=== PATIENT | female | born 1980 | race Caucasian/White ===

== ENCOUNTER → 2016-05-24 | Outpatient (CLI) | payer OTHER, BC ==
[~2016-05-24] VITALS: Ht 162.6 cm; Wt 74.0 kg
[~2016-05-24] MED LIST: AMITRIPTYLINE H25 MG PO; ATIVAN1 MG PO; CIPRO500 MG PO; ELAVIL25 MG PO; GABAPENTIN100 MG PO; IBUPROFEN800 MG PO; IMITREX25 MG PO; KEFLEX500 MG PO; MOTRIN600 MG PO; MOTRIN800 MG PO; NAPROSYN500 MG PO; OXYCODONE HCL5 MG PO; PERCOCET 5/31 TABLET PO; PYRIDIUM100 MG PO; PYRIDIUM200 MG PO; REGLAN10 MG PO; SUMATRIPTAN SUC25 MG PO; TOPAMAX25 MG PO; TOPIRAMATE50 MG PO; VICODIN 5-3001 EACH PO
[2016-05-24 07:24] VITALS: BP 124/75
== END | disposition home or self-care (01) ==
LOC: IVINF 07:00
PROVIDERS: Internal Medicine Endocrinology, Diabetes & Metabolism
DX: R53.83 Other fatigue (principal); Z88.2 Allergy status to sulfonamides; Z88.4 Allergy status to anesthetic agent; Z88.8 Allergy status to other drugs, medicaments and biological substances
CPT/HCPCS: 80400; 82024 90; 82533 91; 96374; J0834

== ENCOUNTER 2016-11-29 15:28 | Emergency (ER) | payer OTHER, BC ==
[~2016-11-29] VITALS: Ht 162.6 cm; Wt 75.1 kg
[2016-11-29] MEDS ORDERED: FLEXERIL10 MG PO (16:51)
[2016-11-29] MEDS ORDERED: ULTRAM50 MG PO (16:51)
[2016-11-29 17:06] VITALS: BP 109/77
== END 2016-11-29 17:16 | disposition home or self-care (01) ==
LOC: EME 15:28
DX: S20.219A Contusion of unspecified front wall of thorax, initial encounter (principal); M62.838 Other muscle spasm; S90.812A Abrasion, left foot, initial encounter; V49.40XA Driver injured in collision with unspecified motor vehicles in traffic accident, initial encounter; Z88.1 Allergy status to other antibiotic agents; Z88.5 Allergy status to narcotic agent; Z88.0 Allergy status to penicillin; Z90.49 Acquired absence of other specified parts of digestive tract
CPT/HCPCS: 71020; 73630; 93005; 99281; 99284

== ENCOUNTER 2017-06-19 17:05 | Emergency (ER) | payer SELFPAY ==
[~2017-06-19] VITALS: Ht 162.6 cm; Wt 79.8 kg
[~2017-06-19 17:05] MED LIST changes: +FLEXERIL10 MG PO; +ULTRAM50 MG PO
[2017-06-19 17:58] LABS: HEMATOCRIT 38.6 % (36.0-46.0); HEMOGLOBIN 13.1 G/DL (11.9-15.5); MCHC 33.9 G/DL (30.0-36.0); MCV 85.6 FL (83-99); PLATELET COUNT 280 K/uL (156-360); RBC DIS.WIDTH-CV 11.9 % (11.8-14.6); RBC DIS.WIDTH-SD 36.8 % (39-53); RED BLOOD COUNT 4.51 M/uL (3.80-5.20); WHITE BLOOD COUNT 12.1 K/uL (4.1-10.2)
[2017-06-19 18:13] LABS: CHLORIDE 106 mEq/L (99-109); POTASSIUM 3.9 mEq/L (3.7-5.4); SODIUM 139 mEq/L (136-147)
[2017-06-19 18:14] LABS: GLUCOSE 140 mg/dL (70-99)
[2017-06-19 18:18] LABS: CREATININE 0.8 mg/dL (0.6-1.3); GFR ESTIMATE (CALCULATED) > 59 mL/min/
[2017-06-19 18:19] LABS: UREA NITROGEN (BUN) 13 mg/dL (9-23)
[2017-06-19] MEDS ORDERED: REGLAN10 MG PO (18:41)
[2017-06-19 19:00] VITALS: BP 125/80
== END 2017-06-19 19:01 | disposition home or self-care (01) ==
LOC: EME 17:05
PROVIDERS: Physician Assistant
DX: G43.909 Migraine, unspecified, not intractable, without status migrainosus (principal); R19.7 Diarrhea, unspecified; Z90.49 Acquired absence of other specified parts of digestive tract
CPT/HCPCS: 80048; 85027; 99281; 99284; J1200; J1885; J2765; J7030

== ENCOUNTER 2017-06-25 17:55 | Emergency (ER) | payer SELFPAY ==
[~2017-06-25] VITALS: Ht 162.6 cm; Wt 80.0 kg
[2017-06-25 19:57] LABS: HEMATOCRIT 37.7 % (36.0-46.0); HEMOGLOBIN 12.6 G/DL (11.9-15.5); MCH 28.5 PG (29.0-34.0); MCHC 33.4 G/DL (30.0-36.0); MCV 85.3 FL (83-99); PLATELET COUNT 278 K/uL (156-360); RBC DIS.WIDTH-SD 37.2 % (39-53); RED BLOOD COUNT 4.42 M/uL (3.80-5.20); WHITE BLOOD COUNT 6.1 K/uL (4.1-10.2)
[2017-06-25 20:26] LABS: ALBUMIN 4.3 g/dL (3.2-4.8)
[2017-06-25 20:27] LABS: CHLORIDE 107 mEq/L (99-109); SODIUM 139 mEq/L (136-147)
[2017-06-25 20:29] LABS: GLUCOSE 82 mg/dL (70-99); TOTAL PROTEIN 7.3 g/dL (6.4-8.3)
[2017-06-25 20:31] LABS: TOTAL BILIRUBIN 0.4 mg/dL (0.0-1.0)
[2017-06-25 20:32] LABS: ALKALINE PHOSPHATASE 61 IU/L (3-129)
[2017-06-25 20:33] LABS: GFR ESTIMATE (CALCULATED) > 59 mL/min/
[2017-06-25 20:34] LABS: AST (GOT) 86 IU/L (2-34); UREA NITROGEN (BUN) 14 mg/dL (9-23)
[2017-06-25 20:35] LABS: ALT (GPT) 39 IU/L (3-49)
[2017-06-25 20:35] LABS: APPEARANCE SL.HAZY ((CLEAR)); BILIRUBIN NEGATIVE; BLOOD SMALL; COLOR YELLOW ((YELLOW)); GLUCOSE (STRIP) NEGATIVE; KETONES NEGATIVE; LEUKOCYTES TRACE; NITRITE NEGATIVE; PROTEIN (STRIP) 30; SPECIFIC GRAVITY 1.021 (1.000-1.030); UROBILINOGEN 0.2 MG/DL (0.2-1.0)
[2017-06-25 20:50] LABS: BACTERIA NONE SEEN /HPF; EPITHELIAL CELLS 2+ /HPF; MUCUS TRACE /LPF; RED BLOOD CELLS 0-5 /HPF (0-5); UCUL ADDED? NO; WHITE BLOOD CELLS 0-5 /HPF (0-5)
[2017-06-25] MEDS ORDERED: ZOFRAN ODT4 MG PO (22:10)
[2017-06-25 22:37] VITALS: BP 110/78
== END 2017-06-25 22:44 | disposition home or self-care (01) ==
LOC: EME 17:55
PROVIDERS: Nurse Practitioner Family
DX: R10.31 Right lower quadrant pain (principal); R11.2 Nausea with vomiting, unspecified; J06.9 Acute upper respiratory infection, unspecified; G43.909 Migraine, unspecified, not intractable, without status migrainosus; A69.20 Lyme disease, unspecified; Z90.49 Acquired absence of other specified parts of digestive tract; Z88.0 Allergy status to penicillin; Z88.5 Allergy status to narcotic agent; Z88.4 Allergy status to anesthetic agent
CPT/HCPCS: 71046; 74177; 80053; 81003; 85027; 99281; 99285; J1885; J2405; J7030

== ENCOUNTER 2017-11-01 19:31 | Emergency (ER) | payer SELFPAY ==
[~2017-11-01] VITALS: Ht 162.6 cm; Wt 76.5 kg
[~2017-11-01 19:31] MED LIST changes: +ZOFRAN ODT4 MG PO
[2017-11-01 20:24] LABS: HEMOGLOBIN 13.2 G/DL (11.9-15.5); MCH 29.2 PG (29.0-34.0); MCHC 33.8 G/DL (30.0-36.0); MCV 86.3 FL (83-99); PLATELET COUNT 286 K/uL (156-360); RBC DIS.WIDTH-CV 12.2 % (11.8-14.6); RBC DIS.WIDTH-SD 38.6 % (39-53); RED BLOOD COUNT 4.52 M/uL (3.80-5.20); WHITE BLOOD COUNT 10.4 K/uL (4.1-10.2)
[2017-11-01 20:29] LABS: APPEARANCE CLEAR ((CLEAR)); BILIRUBIN NEGATIVE; BLOOD NEGATIVE; COLOR STRAW ((YELLOW)); GLUCOSE (STRIP) NEGATIVE; KETONES NEGATIVE; LEUKOCYTES NEGATIVE; NITRITE NEGATIVE; PROTEIN (STRIP) NEGATIVE; SPECIFIC GRAVITY 1.011 (1.000-1.030); UCUL ADDED? NO; UROBILINOGEN 0.2 MG/DL (0.2-1.0)
[2017-11-01 20:37] LABS: ALBUMIN 4.4 g/dL (3.2-4.8); CHLORIDE 109 mEq/L (99-109); POTASSIUM 4.2 mEq/L (3.7-5.4); SODIUM 138 mEq/L (136-147)
[2017-11-01 20:39] LABS: GLUCOSE 97 mg/dL (70-99)
[2017-11-01 20:41] LABS: TOTAL BILIRUBIN 0.3 mg/dL (0.0-1.0)
[2017-11-01 20:43] LABS: ALKALINE PHOSPHATASE 64 IU/L (3-129); GFR ESTIMATE (CALCULATED) > 59 mL/min/
[2017-11-01 20:44] LABS: UREA NITROGEN (BUN) 10 mg/dL (9-23)
[2017-11-01 20:45] LABS: AST (GOT) 17 IU/L (2-34)
[2017-11-01 20:46] LABS: ALT (GPT) 17 IU/L (3-49)
[2017-11-01] MEDS ORDERED: BENTYL10 MG PO (23:08)
[2017-11-01] MEDS ORDERED: ZOFRAN ODT4 MG PO (23:08)
[2017-11-01 23:23] VITALS: BP 105/73
== END 2017-11-01 23:23 | disposition home or self-care (01) ==
LOC: EME 19:31
PROVIDERS: Nurse Practitioner Family
DX: B34.9 Viral infection, unspecified (principal); R10.31 Right lower quadrant pain; G43.909 Migraine, unspecified, not intractable, without status migrainosus; Z90.49 Acquired absence of other specified parts of digestive tract; Z88.5 Allergy status to narcotic agent; Z88.0 Allergy status to penicillin; Z88.4 Allergy status to anesthetic agent
CPT/HCPCS: 74177; 80053; 81003; 81025; 85027; 99281; 99284; J0595; J2405; J2765; J3010; J7030

== ENCOUNTER → 2017-11-27 | Emergency (ER) | payer SELFPAY ==
[~2017-11-27] VITALS: Ht 162.6 cm; Wt 76.6 kg
[~2017-11-27] MED LIST changes: +BENTYL10 MG PO; +CARAFATE1 GM PO; +PREVACID30 MG PO; +TRAMADOL HCL50 MG PO
[2017-11-27 14:28] LABS: HEMOGLOBIN 12.6 G/DL (11.9-15.5); MCH 28.8 PG (29.0-34.0); MCHC 33.2 G/DL (30.0-36.0); MCV 86.8 FL (83-99); PLATELET COUNT 276 K/uL (156-360); RBC DIS.WIDTH-CV 12.4 % (11.8-14.6); RBC DIS.WIDTH-SD 39.5 % (39-53); RED BLOOD COUNT 4.38 M/uL (3.80-5.20); WHITE BLOOD COUNT 6.7 K/uL (4.1-10.2)
[2017-11-27 14:35] LABS: ALBUMIN 4.2 g/dL (3.2-4.8)
[2017-11-27 14:36] LABS: CHLORIDE 109 mEq/L (99-109); POTASSIUM 4.2 mEq/L (3.7-5.4); SODIUM 139 mEq/L (136-147)
[2017-11-27 14:38] LABS: GLUCOSE 114 mg/dL (70-99); TOTAL PROTEIN 6.7 g/dL (6.4-8.3)
[2017-11-27 14:40] LABS: TOTAL BILIRUBIN 0.3 mg/dL (0.0-1.0)
[2017-11-27 14:41] LABS: ALKALINE PHOSPHATASE 59 IU/L (3-129)
[2017-11-27 14:42] LABS: CREATININE 0.8 mg/dL (0.6-1.3); GFR ESTIMATE (CALCULATED) > 59 mL/min/
[2017-11-27 14:43] LABS: AST (GOT) 16 IU/L (2-34); UREA NITROGEN (BUN) 11 mg/dL (9-23)
[2017-11-27 14:45] LABS: ALT (GPT) 16 IU/L (3-49)
[2017-11-27 14:52] LABS: QUANTITATIVE HCG < 4.0 MIU/ML
[2017-11-27 14:54] LABS: APPEARANCE SL.HAZY ((CLEAR)); BILIRUBIN NEGATIVE; BLOOD NEGATIVE; COLOR YELLOW ((YELLOW)); GLUCOSE (STRIP) NEGATIVE; KETONES NEGATIVE; LEUKOCYTES TRACE; NITRITE NEGATIVE; PROTEIN (STRIP) NEGATIVE; SPECIFIC GRAVITY 1.019 (1.000-1.030); UROBILINOGEN 0.2 MG/DL (0.2-1.0)
[2017-11-27 15:00] LABS: BACTERIA NONE SEEN /HPF; EPITHELIAL CELLS 2+ /HPF; MUCUS TRACE /LPF; RED BLOOD CELLS 0-5 /HPF (0-5); UCUL ADDED? NO; WHITE BLOOD CELLS 0-5 /HPF (0-5)
[2017-11-27 18:22] LABS: SOURCE SWAB
[2017-11-27 18:50] VITALS: BP 128/86
[2017-11-28 10:41] LABS: HEPATITIS C ANTIBODY Nonreactive
== END | disposition home or self-care (01) ==
LOC: EME 13:52
PROVIDERS: Physician Assistant
DX: R10.13 Epigastric pain (principal); R35.0 Frequency of micturition; G43.909 Migraine, unspecified, not intractable, without status migrainosus; Z90.49 Acquired absence of other specified parts of digestive tract; Z90.721 Acquired absence of ovaries, unilateral; Z88.0 Allergy status to penicillin; Z88.1 Allergy status to other antibiotic agents; Z88.5 Allergy status to narcotic agent; Z88.8 Allergy status to other drugs, medicaments and biological substances
CPT/HCPCS: 74176; 80053; 81003; 84702; 85027; 86803; 87086; 87210; 87491; 87591; 99281; 99284

== ENCOUNTER 2018-01-10 13:34 | Emergency (ER) | payer SELFPAY ==
[~2018-01-10] VITALS: Ht 162.6 cm; Wt 78.3 kg
[2018-01-10 18:02] VITALS: BP 91/62
== END 2018-01-10 18:19 | disposition home or self-care (01) ==
LOC: EME 13:34
DX: R51 Headache (principal); M79.641 Pain in right hand; M79.642 Pain in left hand; Z88.0 Allergy status to penicillin
CPT/HCPCS: 99281; 99285; J1200; J1885; J2765; J7030